=== PATIENT | male | born 1990 | race Caucasian/White ===

== ENCOUNTER 2018-04-11 20:32 | Emergency (ER) | payer OTHER ==
[~2018-04-11] VITALS: Ht 188 cm; Wt 139.7 kg
[2018-04-11 20:43] VITALS: Ht 188 cm; Wt 139.7 kg
[2018-04-11 21:11] VITALS: BP 208/88
== END 2018-04-11 21:11 | disposition left against medical advice (07) ==
LOC: ED 20:32
DX: Z53.21 Procedure and treatment not carried out due to patient leaving prior to being seen by health care provider (principal)

== ENCOUNTER 2018-04-11 21:21 | Emergency (ER) | payer OTHER ==
[~2018-04-11] VITALS: Ht 188 cm; Wt 139.9 kg
[2018-04-11 21:41] VITALS: Ht 188 cm; Wt 139.9 kg
[2018-04-11 23:54] VITALS: BP 159/94
== END 2018-04-11 23:54 | disposition home or self-care (01) ==
LOC: ED 21:21
DX: S61.512A Laceration without foreign body of left wrist, initial encounter (principal); I10 Essential (primary) hypertension; F32.9 Major depressive disorder, single episode, unspecified; F41.9 Anxiety disorder, unspecified; Z88.1 Allergy status to other antibiotic agents; W22.8XXA Striking against or struck by other objects, initial encounter; Y93.89 Activity, other specified; Y92.89 Other specified places as the place of occurrence of the external cause; Y99.8 Other external cause status
CPT/HCPCS: 90715; J2001